=== PATIENT | male | born 1935 | race Caucasian/White ===

== ENCOUNTER 2016-11-24 06:20 | Emergency (ER) | payer MEDICARE, MEDICAID ==
--- NOTE | 2016-11-24 06:48 | ER Document Report ---
ED Fall - General Mode of Arrival: Medic Information source: Patient, Emergency Med Personnel TRAVEL OUTSIDE OF THE [place] IN LAST 30 DAYS: No - HPI Occurred: Just prior to arrival Where: [facility] Associated symptoms: denies: Lost consciousness Location of injury/pain: Head <JADA CHRISTENSEN - Last Filed: 11/24/16 11:29> <ZORAIDAGEMA CHARLEY - Last Filed: 11/24/16 15:33> - General Stated Complaint: FALL,HEAD INJURY Time Seen by Provider: 11/24/16 06:32 Notes: Patient is a 81 year old male who presents to the ED after stumbling into the edge of the dresser and landing on the floor just GYROSCOPIC INSTRUMENT TESTER. Patient hit his head on the corner on the dresser. He had no LOC. When EMS arrived he was being cleaning up by nursing staff. Patients only complaint is head pain. He is on Xarelto for a fib. (JADA CHRISTENSEN) - Related data Allergies/Adverse Reactions: No Known Allergies Allergy (Verified 02/08/14 09:06) Past Medical History - General Information source: Patient - Social History Smoking Status: Unknown if Ever Smoked Family History: Reviewed & Not Pertinent - Past Medical History Cardiac Medical History: Reports: Hx Atrial Fibrillation, Hx Congestive Heart Failure, Hx Hypertension - LSINOPRIL, METOPROLOL Endocrine Medical History: Reports: Hx Diabetes Mellitus Type 1, Hx Diabetes Mellitus Type 2 GI Medical History: Reports: Hx Gastroesophageal Reflux Disease Psychiatric Medical History: Reports: Hx Depression Past Surgical History: Reports: Hx Orthopedic Surgery - jaw - Immunizations Hx Diphtheria, Pertussis, Tetanus Vaccination: Yes Hx Pneumococcal Vaccination: 12/04/13 <JADA CHRISTENSEN - Last Filed: 11/24/16 11:29> Review of Systems - Review of Systems Constitutional: No symptoms reported EENT: No symptoms reported Cardiovascular: No symptoms reported Respiratory: No symptoms reported Gastrointestinal: No symptoms reported Genitourinary: No symptoms reported Male Genitourinary: No symptoms reported Musculoskeletal: No symptoms reported Skin: See HPI, Other - laceration to head Hematologic/Lymphatic: No symptoms reported Neurological/Psychological: See HPI, Headaches <JADA CHRISTENSEN - Last Filed: 11/24/16 11:29> Physical Exam - General General appearance: Appears well, Alert In distress: None - HEENT Head: Other - 1 cm laceration to left lateral head, hair is matted with blood Eyes: Normal Extraocular movements intact: Yes Pupils: PERRL - Respiratory Respiratory status: No respiratory distress Breath sounds: Normal - Cardiovascular Rhythm: Regular Heart sounds: Normal auscultation Murmur: No - Abdominal Inspection: Normal Distension: No distension Tenderness: Nontender - Back Back: Normal, Nontender - no midline bony tenderness - Extremities General upper extremity: Normal inspection, Normal ROM General lower extremity: Normal inspection, Normal ROM, Other - no hip tenderness. No: Edema - Neurological Neuro grossly intact: Yes - Psychological Associated symptoms: Normal affect, Normal mood - Skin Skin Temperature: Warm Skin Moisture: Dry Skin Color: Normal Skin irregularity: Laceration - 1 cm laceration to left lateral head <JADA CHRISTENSEN - Last Filed: 11/24/16 11:29> Course - Laboratory Result Diagrams: 11/24/16 06:35 11/24/16 06:35 <JADA CHRISTENSEN - Last Filed: 11/24/16 11:29> - Laboratory Result Diagrams: 11/24/16 06:35 11/24/16 06:35 - Diagnostic Test Radiology reviewed: Reports reviewed <GEMA CONWAY - Last Filed: 11/24/16 15:33> - Re-evaluation Re-evalutation: 11/24/16 1 Patient is a 81-year-old male who was off balance and fell onto his dresser. Patient has a scalp laceration. CT with no acute findings. Blood work with no acute findings. No evidence for infection in urine. Patient appears at his baseline. He will have oz placed. Please see procedure note. Patient will return to his facility today. Patient and family agree with this plan. ( GEMA CONWAY) - Laboratory Laboratory results interpreted by me: 11/24/16 11/24/16 11/24/16 06:35 06:35 08:41 RBC 3.80 L Hgb 12.3 L Hct 35.6 L RDW 15.4 H Plt Count 134 L BUN 23 H Urine Protein 100 H Urine Glucose (UA) 50 H Ur Leukocyte Esterase TRACE H Urine Ascorbic Acid 40 H Procedures - Laceration/Wound Repair Head Time completed: 08:00 Wound length (cm): 1 Wound Repaired With: Oz - 2 <JADA CHRISTENSEN - Last Filed: 11/24/16 11:29> <GEMA CONWAY - Last Filed: 11/24/16 15:33> - Laceration/Wound Repair Head Notes: 11/24/16 08:16 Controlled bleeding of the scalp. (JADA CHRISTENSEN) Discharge <JADA CHRISTENSEN - Last Filed: 11/24/16 11:29> <GEMA CONWAY - Last Filed: 11/24/16 15:33> - Discharge Clinical Impression: Fall Qualifiers: Encounter type: initial encounter Qualified Code(s): W19.XXXA - Unspecified fall, initial encounter Head injury Qualifiers: Encounter type: initial encounter Qualified Code(s): S09.90XA - Unspecified injury of head, initial encounter Scalp laceration Qualifiers: Encounter type: initial encounter Qualified Code(s): S01.01XA - Laceration without foreign body of scalp, initial encounter Condition: Stable Disposition: HOME, SELF-CARE Instructions: Head Injury Precautions ([facility]), Scalp Laceration ([facility]), Care of Stapled Wounds ([facility]) Additional Instructions: Please follow-up with your doctor within 3-5 days. Please return if you have any further concerns or symptoms. The CAT scan of your head is not showing any brain injury. Referrals: CORTNEY MASSEY PA-C [Primary Care Provider] - Follow up in 3-5 days Scribe Attestation: 11/24/16 15:33 I personally performed the services described in the documentation, reviewed and edited the documentation which was dictated to the scribe in my presence, and it accurately records my words and actions. (GEMA CONWAY) Scribe Documentation - Scribe Written by Bradley:: bradley Dahl, 11/24/2016, [id number] acting as scribe for :: Zoraida <JADA CHRISTENSEN - Last Filed: 11/24/16 11:29>
--- NOTE | 2016-11-24 07:01 | RADIOLOGY REPORT (SQ) ---
EXAM DESCRIPTION: CT HEAD WITHOUT COMPLETED DATE/TIME: 11/24/2016 6:51 am REASON FOR STUDY: fall, injury COMPARISON: 05/26/2009. TECHNIQUE: Axial images acquired through the brain without intravenous contrast. Images reviewed wi th bone, brain and subdural windows. Images stored on PACS. All CT scanners at this facility use dose modulation, iterative reconstruction, and/or weight based d osing when appropriate to reduce radiation dose to as low as reasonably achievable (ALARA). [facility]: Dose Right [facility]: CareDose [facility]: Dose Right [facility]: Teradose 4D [facility]: deskwolf RADIATION DOSE: Up-to-date CT equipment and radiation dose reduction techniques were employed. CTDIv ol: 64.6 mGy. DLP: 1163 mGy-cm. mGy. LIMITATIONS: None. FINDINGS: VENTRICLES: Normal size and contour. CEREBRUM: No masses. No hemorrhage. No midline shift. No evidence for acute infarction. Normal gra y/white matter differentiation. No areas of low density in the white matter. Mild cerebral volume lo ss. CEREBELLUM: No masses. No hemorrhage. No alteration of density. No evidence for acute infarction. EXTRAAXIAL SPACES: No fluid collections. No masses. Atherosclerosis. ORBITS AND GLOBE: No intra- or extraconal masses. Normal contour of globe without masses. CALVARIUM: No fracture. PARANASAL SINUSES: No fluid or mucosal thickening. SOFT TISSUES: Mild swelling of the left mid parietal scalp. OTHER: No other significant finding. IMPRESSION: Mild scalp swelling. No acute intracranial findings. EVIDENCE OF ACUTE STROKE: NO. COMMENT: Quality ID # [id number]: Final reports with documentation of one or more dose reduction techniques (e.g., Automated exposure control, adjustment of the mA and/or kV according to patient size, use of iterative reconstruction technique) TECHNICAL DOCUMENTATION: JOB ID: [id number] [employer]- All Rights Reserved
[2016-11-24 07:26] LABS: ABSOLUTE EOSINOPHILS # (AUTO) 0.2 10^3/uL (0.0-0.6); ABSOLUTE LYMPHOCYTES (AUTO) 1.6 10^3/uL (0.5-4.7); ABSOLUTE MONOCYTES (AUTO) 0.9 10^3/uL (0.1-1.4); ABSOLUTE NEUT (AUTO) 4.6 10^3/uL (1.7-8.2); BASOPHILS % (AUTO) 0.7 % (0-2); EOSINOPHILS % (AUTO) 3.2 % (0-6); HEMATOCRIT 35.6 % (37.9-51.0); HEMOGLOBIN 12.3 g/dL (13.5-17.0); HGB HCT DIFFERENCE 1.3; LYMPHOCYTES % (AUTO) 21.7 % (13-45); MEAN CORPUSCULAR HEMOGLOBIN 32.5 pg (27.0-33.4); MEAN CORPUSCULAR HGB CONC 34.7 g/dL (32.0-36.0); MEAN CORPUSCULAR VOLUME 94 fl (80-97); MONOCYTES % (AUTO) 12.4 % (3-13); RED CELL DISTRIBUTION WIDTH 15.4 % (11.5-14.0); WHITE BLOOD COUNT 7.3 10^3/uL (4.0-10.5)
[2016-11-24 07:31] LABS: PROTHROMBIN TIME 14.6 SEC (11.4-15.4)
[2016-11-24 07:32] LABS: PARTIAL THROMBOPLASTIN TIME 34.2 SEC (23.5-35.8)
[2016-11-24 07:46] LABS: ANION GAP 9 (5-19); BLOOD UREA NITROGEN 23 mg/dL (7-20); CALCIUM 9.3 mg/dL (8.4-10.2); CARBON DIOXIDE 25 mmol/L (22-30); CHLORIDE 106 mmol/L (98-107); CREATININE RESULT 0.59 mg/dL (0.52-1.25); GLUCOSE 106 mg/dL (75-110); POTASSIUM 4.1 mmol/L (3.6-5.0); SODIUM 140.2 mmol/L (137-145)
[2016-11-24 09:12] LABS: APPEARANCE,URINE SLIGHTLY-CLOUDY; BILIRUBIN,URINE NEGATIVE (NEGATIVE); GLUCOSE, URINE 50 mg/dL (NEGATIVE); KETONES,URINE NEGATIVE (NEGATIVE); LEUKOCYTE ESTERASE,URINE TRACE (NEGATIVE); NITRITE,URINE NEGATIVE (NEGATIVE); PROTEIN,URINE 100 mg/dL (NEGATIVE); UROBILINOGEN,URINE NEGATIVE mg/dL (<2.0)
== END 2016-11-24 09:42 | disposition home or self-care (01) ==
LOC: ER 06:20
PROC: 0HQ0XZZ Repair Scalp Skin, External Approach (ICD-10-PCS; principal; 2016-11-24)
DX: S01.01XA Laceration without foreign body of scalp, initial encounter (principal); R51 Headache; W18.09XA Striking against other object with subsequent fall, initial encounter; Y92.129 Unspecified place in nursing home as the place of occurrence of the external cause; E11.9 Type 2 diabetes mellitus without complications; I10 Essential (primary) hypertension; I48.91 Unspecified atrial fibrillation; Z79.01 Long term (current) use of anticoagulants
CPT/HCPCS: 36415; 70450; 80048; 81001; 85025; 85610; 85730; 87086; 99284

== ENCOUNTER 2017-07-06 15:13 | Emergency (ER) | payer MEDICARE, MEDICAID ==
[2017-07-06] MEDS ORDERED: ONDANSETRON HCL INJ/PF 4 MG/2 ML SDV IV ONE (15:39)
[2017-07-06] MEDS ORDERED: FENTANYL CITRATE INJ/PF 100 MCG/2 ML AMPUL IV ONE (15:39)
[2017-07-06 15:43] LABS: ABSOLUTE EOSINOPHILS # (AUTO) 0.2 10^3/uL (0.0-0.6); ABSOLUTE LYMPHOCYTES (AUTO) 2.1 10^3/uL (0.5-4.7); ABSOLUTE MONOCYTES (AUTO) 0.9 10^3/uL (0.1-1.4); ABSOLUTE NEUT (AUTO) 4.1 10^3/uL (1.7-8.2); BASOPHILS % (AUTO) 0.6 % (0-2); EOSINOPHILS % (AUTO) 2.9 % (0-6); HEMATOCRIT 35.4 % (37.9-51.0); HEMOGLOBIN 12.2 g/dL (13.5-17.0); MEAN CORPUSCULAR HEMOGLOBIN 33.2 pg (27.0-33.4); MEAN CORPUSCULAR HGB CONC 34.6 g/dL (32.0-36.0); MEAN CORPUSCULAR VOLUME 96 fl (80-97); MONOCYTES % (AUTO) 12.3 % (3-13); PLATELET COUNT 169 10^3/uL (150-450); RED BLOOD COUNT 3.68 10^6/uL (4.35-5.55); RED CELL DISTRIBUTION WIDTH 14.9 % (11.5-14.0); SEGMENTED NEUTROPHILS % (AUTO) 55.2 % (42-78); TOTAL CELLS COUNTED % (AUTO) 100 %; WHITE BLOOD COUNT 7.4 10^3/uL (4.0-10.5)
[2017-07-06 16:05] LABS: ANION GAP 10 (5-19); BLOOD UREA NITROGEN 24 mg/dL (7-20); CALCIUM 9.1 mg/dL (8.4-10.2); CARBON DIOXIDE 30 mmol/L (22-30); CHLORIDE 104 mmol/L (98-107); GLUCOSE 121 mg/dL (75-110); POTASSIUM 4.4 mmol/L (3.6-5.0); SODIUM 143.8 mmol/L (137-145)
--- NOTE | 2017-07-06 16:21 | RADIOLOGY REPORT (SQ) ---
EXAM DESCRIPTION: CT HEAD WITHOUT COMPLETED DATE/TIME: 07/06/2017 3:42 pm REASON FOR STUDY: fall COMPARISON: CT brain 11/24/2016, 05/26/2009, 04/14/2008 TECHNIQUE: Axial images acquired through the brain without intravenous contrast. Images reviewed wi th bone, brain and subdural windows. Additional sagittal and coronal reconstructions were generated. Images stored on PACS. All CT scanners at this facility use dose modulation, iterative reconstruction, and/or weight based d osing when appropriate to reduce radiation dose to as low as reasonably achievable (ALARA). [facility]: Dose Right [facility]: CareDose [facility]: Dose Right [facility]: Teradose 4D [facility]: [employer] RADIATION DOSE: 62 mGy. LIMITATIONS: None. FINDINGS: VENTRICLES: Normal size and contour. CEREBRUM: No masses. No hemorrhage. No midline shift. No evidence for acute infarction. Normal gra y/white matter differentiation. No areas of low density in the white matter. CEREBELLUM: No masses. No hemorrhage. No alteration of density. No evidence for acute infarction. EXTRAAXIAL SPACES: No fluid collections. No masses. ORBITS AND GLOBE: No intra- or extraconal masses. Normal contour of globe without masses. CALVARIUM: No fracture. PARANASAL SINUSES: No fluid or mucosal thickening. SOFT TISSUES: Left frontal scalp hematoma without underlying skull fracture or acute intracranial buck nges OTHER: No other significant finding. IMPRESSION: No acute intracranial changes. Left frontal scalp hematoma. EVIDENCE OF ACUTE STROKE: NO. COMMENT: Quality ID # [id number]: Final reports with documentation of one or more dose reduction techniques (e.g., Automated exposure control, adjustment of the mA and/or kV according to patient size, use of iterative reconstruction technique) TECHNICAL DOCUMENTATION: JOB ID: [id number] [employer]- All Rights Reserved Reading location - IP/workstation name: [email or web address]
--- NOTE | 2017-07-06 17:04 | RADIOLOGY REPORT (SQ) ---
EXAM DESCRIPTION: RIBS LEFT W/PA CHEST COMPLETED DATE/TIME: 07/06/2017 4:24 pm REASON FOR STUDY: fall COMPARISON: None. TECHNIQUE: Frontal view of the chest and additional views of the left ribs acquired. NUMBER OF VIEWS: Five views LIMITATIONS: None. FINDINGS: FRONTAL CXR: No pneumothorax. No pleural effusion. No atelectasis or infiltrates. RIBS: No displaced rib fractures. No lytic or blastic bony lesions. OTHER: Cardiac silhouette is enlarged. IMPRESSION: NO PNEUMOTHORAX. NO DISPLACED RIB FRACTURES. COMMENT: SITE OF TRAUMA/COMPLAINT MARKED/STAMP COMPLETED: No TECHNICAL DOCUMENTATION: JOB ID: [id number] [employer]- All Rights Reserved Reading location - IP/workstation name: [email or web address]
--- NOTE | 2017-07-06 17:11 | RADIOLOGY REPORT (SQ) ---
EXAM DESCRIPTION: SHOULDER LEFT 2 OR MORE VIEWS COMPLETED DATE/TIME: 07/06/2017 4:24 pm REASON FOR STUDY: fall COMPARISON: None. NUMBER OF VIEWS: Three views. TECHNIQUE: Internal rotation, external rotation, and Y view images acquired of the left shoulder. LIMITATIONS: None. FINDINGS: MINERALIZATION: Normal. BONES: There is an impaction type fracture of the proximal humerus. No other evidence for fracture i s seen. JOINTS: No dislocation. VISUALIZED LUNGS AND RIBS: No pneumothorax. No rib fracture. SOFT TISSUES: No radiopaque foreign body. OTHER: No other significant finding. IMPRESSION: Impaction type fracture of the proximal humerus. TECHNICAL DOCUMENTATION: JOB ID: [id number] [employer]- All Rights Reserved Reading location - IP/workstation name: [email or web address]
--- NOTE | 2017-07-06 18:11 | ER Document Report ---
ED General - General Chief Complaint: Fall Injury Stated Complaint: FALL SHOULDER PAIN Time Seen by Provider: 07/06/17 15:21 TRAVEL OUTSIDE OF THE [place] IN LAST 30 DAYS: No - HPI Patient complains to provider of: Fall Notes: Patient coming in for evaluation of fall. Patient states he was in his assisted living facility when he fell backwards. Lying on left side. Patient most of his head patient is on Eliquis. Patient does have a hematoma to the left forehead region. Patient also complains of left shoulder pain. Denies any dizziness denies any chest pain abdominal pain fevers chills nausea vomiting prior to after or during the episode. Patient denies any syncope. Patient resting company upon my evaluation. - Related Data Allergies/Adverse Reactions: No Known Allergies Allergy (Verified 02/08/14 09:06) Past Medical History - Social History Smoking Status: Unknown if Ever Smoked Family History: Reviewed & Not Pertinent Patient has suicidal ideation: No Patient has homicidal ideation: No - Past Medical History Cardiac Medical History: Reports: Hx Atrial Fibrillation, Hx Congestive Heart Failure, Hx Hypertension - LSINOPRIL, METOPROLOL Endocrine Medical History: Reports: Hx Diabetes Mellitus Type 1, Hx Diabetes Mellitus Type 2 Renal/ Medical History: Denies: Hx Peritoneal Dialysis GI Medical History: Reports: Hx Gastroesophageal Reflux Disease Psychiatric Medical History: Reports: Hx Depression Past Surgical History: Reports: Hx Orthopedic Surgery - jaw - Immunizations Hx Diphtheria, Pertussis, Tetanus Vaccination: Yes Hx Pneumococcal Vaccination: 12/04/13 Review of Systems - Review of Systems Constitutional: Other - Head injury left shoulder pain EENT: No symptoms reported Cardiovascular: No symptoms reported Respiratory: No symptoms reported Gastrointestinal: No symptoms reported Genitourinary: No symptoms reported Male Genitourinary: No symptoms reported Musculoskeletal: No symptoms reported Skin: No symptoms reported Hematologic/Lymphatic: No symptoms reported Neurological/Psychological: No symptoms reported -: Yes All other systems reviewed and negative Physical Exam - Vital signs Vitals: Resp Pulse Ox 19 98 07/06/17 15:33 07/06/17 15:33 Interpretation: Normal - General General appearance: Appears well, Alert - HEENT Head: Normocephalic. No: Atraumatic - Abrasion and contusion to the left forehead Eyes: Normal Pupils: PERRL - Respiratory Respiratory status: No respiratory distress Chest status: Nontender Breath sounds: Normal Chest palpation: Normal - Cardiovascular Rhythm: Regular Heart sounds: Normal auscultation Murmur: No - Abdominal Inspection: Normal Distension: No distension Bowel sounds: Normal Tenderness: Nontender Organomegaly: No organomegaly - Back Back: Normal, Nontender - Extremities General upper extremity: Normal inspection, Normal temperature. No: Nontender - Decreased range of motion of left shoulder due to pain. Patient does have tenderness to palpation of the left shoulder. Pulses are intact. There is no pain to palpation of the olecranon process. Right shoulder is unaffected. General lower extremity: Normal inspection, Nontender, Normal color, Normal ROM , Normal temperature - Neurological Neuro grossly intact: Yes Cognition: Normal Orientation: AAOx4 Amanda Coma Scale Eye Opening: Spontaneous [place] Coma Scale Verbal: Oriented [place] Coma Scale Motor: Obeys Commands Amanda Coma Scale Total: 15 Speech: Normal Motor strength normal: LUE, RUE, LLE, RLE Sensory: Normal - Psychological Associated symptoms: Normal affect, Normal mood - Skin Skin Temperature: Warm Skin Moisture: Dry Skin Color: Normal Course - Re-evaluation Re-evalutation: 07/06/17 19:11 X-rays do show signs of fracture of the left humerus. Proximally. Patient was placed in a sling. Patient does inform that he normally walks around with a walker. We were able to contact his assisted living facility they do have access to a wheelchair in the patient's room is wheelchair accessible. Feel this time is no other need for any further evaluation. Patient will be discharged home recommended Tylenol for pain control patient's follow-up for thyroid approximately 1 week. - Vital Signs Vital signs: Temp Pulse Resp BP Pulse Ox 17 128/92 H 97 07/06/17 19:10 07/06/17 19:10 07/06/17 19:10 - Laboratory Result Diagrams: 07/06/17 13:30 07/06/17 13:30 Laboratory results interpreted by me: 07/06/17 07/06/17 07/06/17 13:30 13:30 16:06 RBC 3.68 L Hgb 12.2 L Hct 35.4 L RDW 14.9 H BUN 24 H Glucose 121 H POC Glucose 132 H Discharge - Discharge Clinical Impression: Scalp bruising Qualifiers: Encounter type: initial encounter Qualified Code(s): S00.03XA - Contusion of scalp, initial encounter Left humeral fracture Qualifiers: Encounter type: initial encounter Humerus Location: proximal Fracture type: closed Fracture morphology: other fracture Fracture alignment: nondisplaced Qualified Code(s): S42.295A - Other nondisplaced fracture of upper end of left humerus, initial encounter for closed fracture Condition: Good Disposition: HOME, SELF-CARE Instructions: Abrasions of the Face ([facility]), Fracture Proximal Humerus Additional Instructions: Laboratory studies today did not show any signs of significant pathology. Your x-ray of your left shoulder does show a fracture. We have confirmed with your assisted living facility that they do have a wheelchair available for you. I highly recommend she follow-up with the orthopedic doctor provided. Return to the ER if symptoms worsen. Would recommend taking Tylenol for your pain. Prescriptions: Wheelchair 1 each [facility] DAILY #1 each Forms: Return to Work Referrals: SANJEEV AUGUST MD [ACTIVE STAFF] - Follow up in 1 week
[2017-07-06 19:12] VITALS: BP 128/92
--- NOTE | 2017-07-06 23:44 | EKG REPORT ---
SEVERITY:- ABNORMAL ECG - PROBABLE AFIB, REC REPEAT EKG RIGHT BUNDLE BRANCH BLOCK : Confirmed by: [place] An 06-Jul-2017 23:43:46
== END 2017-07-06 19:20 | disposition home or self-care (01) ==
LOC: ER 15:13
DX: S42.295A Other nondisplaced fracture of upper end of left humerus, initial encounter for closed fracture (principal); S00.03XA Contusion of scalp, initial encounter; W18.30XA Fall on same level, unspecified, initial encounter; Y92.099 Unspecified place in other non-institutional residence as the place of occurrence of the external cause; I48.91 Unspecified atrial fibrillation; I50.9 Heart failure, unspecified; I11.0 Hypertensive heart disease with heart failure; E11.9 Type 2 diabetes mellitus without complications
CPT/HCPCS: 93005; 99285; 96374; 96375; 36415; 82962; 85025; 80048; 71101; 73030; 70450; 93010; J3010; J2405